=== PATIENT | female | born 1965 | race Caucasian/White ===

== ENCOUNTER 2018-01-23 12:04 | Emergency (ER) | payer OTHER ==
[~2018-01-23] VITALS: Ht 157.5 cm; Wt 90.7 kg
[~2018-01-23 12:04] MED LIST: ATIVAN1 M1 PO; XANAX1 M1 PO
[2018-01-23 12:09] VITALS: BP 148/88
--- NOTE | 2018-01-23 12:44 | ED GENERAL ADULT ---
History of Present Illness General Chief Complaint: General Adult Stated Complaint: NEEDS MED REFILL Source: patient Exam Limitations: no limitations Vital Signs & Intake/Output Vital Signs & Intake/Output Vital Signs Date Time Temp Pulse Resp B/P B/P Pulse O2 O2 Flow FiO2 Mean Ox Delivery Rate 01/23 1209 96.9 96 18 148/88 96 Room Air Allergies Coded Allergies: NO KNOWN ALLERGIES (10/09/17) Reconcile Medications Dextroamphetamine/Amphetamine (Adderall XR 20 MG Capsule) 20 MG CAP.ER.24H 1 TAB PO TID MENTAL HEALTH (Reported) Fluoxetine HCl 40 MG CAPSULE 1 CAP PO QAM MENTAL HEALTH (Reported) Gabapentin 300 MG CAPSULE 1 CAP PO TID MENTAL HEALTH (Reported) Triage Note: PT TO ER SEEKING REFILL OF ADDERALL 20 MG TID. PT'S USUAL PRESCRIBER NO LONGER PRACTICING, SEEKING PSYCHIATRIC REFERRAL. PT HAS NOT MISSED ANY MEDICATIONS, HAS ENOUGH UNTIL SATURDAY. Triage Nurses Notes Reviewed? yes Onset: Abrupt Duration: day(s):, constant Timing: recent history HPI: 52-year-old female comes into emergency room for refill on her Adderall XR. Patient reports that she is currently trying to find a new doctor and that her current doctor lost her license. She reports she's had difficulty. She has a prescription for another 2 days. She is on 20 mg Adderall XR 3 times a day. (Philip Johnston) Past History Travel History Traveled to [place] past 21 day No Medical History Any Pertinent Medical History? see below for history Neurological: NONE EENT: NONE Cardiovascular: NONE Respiratory: NONE Gastrointestinal: NONE Hepatic: NONE Renal: NONE Musculoskeletal: edema Psychiatric: anxiety, depression, ADHD PTSD Endocrine: NONE Cancer(s): UTERINE CANCER Surgical History Surgical History: non-contributory Psychosocial History Who do you live with Spouse Services at Home None What is your primary language [place]se Tobacco Use: Current Daily Use Daily Tobacco Use Amount/Type: => 5 Cigarettes daily Family History Hx Contributory? No (Philip Johnston) Review of Systems Review of Systems Constitutional: Reports: no symptoms. EENTM: Reports: no symptoms. Respiratory: Reports: no symptoms. Cardiovascular: Reports: no symptoms. GI: Reports: no symptoms. Genitourinary: Reports: no symptoms. Musculoskeletal: Reports: no symptoms. Skin: Reports: no symptoms. Neurological/Psychological: Reports: no symptoms. Hematologic/Endocrine: Reports: no symptoms. Immunologic/Allergic: Reports: no symptoms. All Other Systems: Reviewed and Negative (Philip Johnston) Physical Exam Physical Exam General Appearance: well developed/nourished, no apparent distress, alert, awake Head: atraumatic, normal appearance Eyes: Bilateral: normal appearance. Ears, Nose, Throat: normal ENT inspection, hearing grossly normal Neck: normal inspection Respiratory: no respiratory distress Extremities: normal inspection Neurologic/Psych: awake, alert, oriented x 3 Skin: intact, normal color Core Measures ACS in differential dx? No CVA/TIA Diagnosis: No Sepsis Present: No Sepsis Focused Exam Completed? No (Philip Johnston) Progress Differential Diagnoses I considered the following diagnoses in my evaluation of the patient: ADD, medication withdrawal, drug-seeking, Plan of Care: 01/23/2018 1:13:48 PM I explained to the patient I cannot refill this medication and she needs to follow-up with her psychiatrist or a new psychiatrist. Initial ED EKG: none (Philip Johnston) Departure Departure Disposition: HOME OR SELF CARE Condition: Stable Clinical Impression Primary Impression: Medication refill Referrals: Carlos Eduardo Can MD (PCP/Family) Additional Instructions: Decrease your dosing of Adderall to 20 mg a day. Contact your psychiatrist on Saturday. Return if any other concerns worsening symptoms. Please go over all results of today's visit with your primary care doctor. Contact your primary care doctor to let them know you were here in the emergency room. There may be nonspecific findings which may not be related to your visit today here in the emergency room but may require further evaluation and chronic monitoring by your primary care doctor. If you had a laceration today the chance of foreign body always remains. You should follow-up with your primary care doctor for recheck in 3-5 days for a wound check. If you had an x-ray done there is a chance that a fracture could have been missed on initial read and you should follow-up with your primary care doctor for repeat x-rays if symptoms persist. If your blood pressure was elevated here in the emergency room please have rechecked by [facility] primary care doctor within the next 48. If you were prescribed a narcotic here in the emergency room or any type of controlled substances you're not allowed to drive while taking this medication or operate any type of heavy machinery. Narcotics can make you feel lightheaded dizziness nausea and can cause constipation. You may need to supervisor picking crew a stool softener. Thank you for choosing [facility] emergency room. Please return to the emergency room immediately if you have any other concerns worsening of symptoms. Departure Forms: Customer Survey General Discharge Information (Philip Johnston) PA/CARRIER WASHER Co-Sign Statement Statement: ED Attending supervision documentation- [] I saw and evaluated the patient. I have also reviewed all the pertinent lab results and diagnostic results. I agree with the findings and the plan of care as documented in the PA's/CARRIER WASHER's documentation. [X] I have reviewed the ED Record and agree with the PA's/CARRIER WASHER's documentation. [] Additions or exceptions (if any) to the PAs/CARRIER WASHER's note and plan are summarized below: [] (Julisa GARCIA,Malachi Pro) Critical Care Note Critical Care Note Critical Care Time: non-applicable (Philip Johnston)
[2018-01-23] MEDS ORDERED: FLUOXETINE HCL40 M1 PO (12:48)
[2018-01-23] MEDS ORDERED: ADDERALL XR 2020 MG PO (12:48)
[2018-01-23] MEDS ORDERED: GABAPENTIN300 M2 PO (12:48)
== END 2018-01-23 12:51 ==
LOC: ERH 12:04
DX: Z76.0 Encounter for issue of repeat prescription (principal)
CPT/HCPCS: 99281